=== PATIENT | female | born 1965 | race Caucasian/White ===

== ENCOUNTER 2016-08-30 05:55 | Emergency (ER) ==
[2016-08-30 06:17] LABS: MANUAL DIFF NEEDED? NO
[2016-08-30 06:17] LABS: URINE CULTURE NEEDED? NO; URINE SOURCE CLEAN CATCH
[2016-08-30 06:20] LABS: BILIRUBIN URINE NEGATIVE (NEGATIVE); BLOOD URINE NEGATIVE (NEGATIVE); COLOR YELLOW; GLUCOSE URINE NEGATIVE (NEGATIVE); LEUKOCYTES URINE NEGATIVE (NEGATIVE); NITRITE URINE NEGATIVE (NEGATIVE); PH URINE 5.5; PROTEIN URINE TRACE mg/dL (NEGATIVE); SP GRAVITY URINE 1.022; TURBIDITY URINE CLEAR (CLEAR); URINE MICRO REVIEW NEEDED? YES; UROBILINOGEN URINE NORMAL (NORMAL)
[2016-08-30 06:21] LABS: UR EPITHELIAL CELLS <10 /HPF (<10); URINE BACTERIA 1+ /HPF; URINE RBC <10 /HPF (<10); URINE WBC <10 /HPF (<10)
[2016-08-30 06:22] LABS: BASO% 0.5 % (0.0-0.8); EOS# 0.18 X1000 (0.0-0.7); EOS% 2.4 % (0.0-10.0); HEMATOCRIT 42.4 % (37.0-47.0); HEMOGLOBIN 14.3 g/dL (12.0-16.0); IMM GRAN# 0.03 X1000 (0.0-0.04); IMM GRAN% 0.4 % (0.0-0.5); LYMPH# 2.47 X1000 (1.2-3.4); LYMPH% 33.5 % (20.5-51.1); MCH 31.6 PG (27-31); MCHC 33.7 g/dL (33-37); MCV 93.8 FL (81-99); MONO# 0.56 X1000 (0.11-0.59); MONO% 7.6 % (1.7-9.3); MPV 9.9 FL (7.4-10.4); NEUT% 55.6 % (42.2-75.2); PLT 274 X1000 (130-400); RBC 4.52 XMIL (4.2-5.4)
[2016-08-30 06:26] LABS: URINE CASTS NONE SEEN; URINE CRYSTALS CA OXALATE PRESENT
[2016-08-30 06:27] LABS: URINE SMALL ROUND CELLS NONE SEEN
[2016-08-30 06:47] LABS: AGAP 15; ALBUMIN 4.3 g/dL (3.5-5.0); ALKALINE PHOSPHATASE 60 U/L (32-104); AMYLASE 87 U/L (20-200); BUN 7 mg/dL (8-22); CALCIUM 9.1 mg/dL (8.8-10.2); CHLORIDE 103 mmol/L (98-107); COSMO 282; GOT 24 U/L (10-30); GPT 26 U/L (10-36); LIPASE 35 U/L (13-60); POTASSIUM 4.1 mmol/L (3.5-5.1); SODIUM 142 mmol/L (136-145); TCO2 24 mmol/L (25-35); TOTAL BILIRUBIN 0.25 mg/dL (0.20-1.00); TOTAL PROTEIN 7.2 g/dL (6.3-8.3)
[2016-08-30] MEDS ORDERED: DULCOLAX PR ONE (08:29)
--- NOTE | 2016-08-30 08:30 | PROVIDER DOCUMENTATION ---
HPI-Abdominal Pain/GI Problem - General Chief Complaint: Abdominal Pain Stated Complaint: ABD PAIN Time Seen by Provider: 08/30/16 06:19 Source: patient Allergies/Adverse Reactions: Patient Allergies Allergy/AdvReac Type Severity Reaction Status Date / Time No Known Allergies Allergy Verified 04/12/15 17:15 Home Medications: Home Medication List Medication Instructions Recorded Confirmed Last Taken Type Clonazepam 1 mg PO DAILY 04/12/15 04/12/15 04/12/15 History Cyclobenzaprine [Flexeril] 10 mg PO PRN PRN 04/12/15 04/12/15 04/12/15 History Hydrocodone/Acetaminophen [Volcano 1 tab PO DAILY PRN 04/12/15 04/12/15 04/11/15 History 10-325 Tablet] Paroxetine [Paxil] 40 mg PO DAILY 04/12/15 04/12/15 04/12/15 History Bisacodyl [Dulcolax] 10 mg MA DAILY PRN #10 supp 08/30/16 Unknown Rx - History of Present Illness-ABD Nature of Presenting Problems: Reports she has been having off and on abd pain X years due to a small umbilical hernia. Pt eat some diet candy last night for wt loss. Severe epigastric pain at 1:30AM. Denies N/V/D. Pt had a small BM after ED arrival and her pain resolved. Abdominal Pain Onset Location: reports: epigastric Pain Radiation: reports: no radiation Quality of Pain: reports: aching, sharp Severity in ED: reports: moderate Onset/Duration: reports: other (See above) Timing: reports: gone now Activities at Onset: reports: none Modifying Factors: improves with: nothing Associated Symptoms: reports: constipation, cough, fever/chills. denies: chest pain Last BM: this morning Rectal Pain: reports: none Bruising or Bleeding Gums?: No Similar Symptoms Previously?: No Review of Systems - Adult - REVIEW OF SYSTEMS - ADULT Constitutional: reports: see HPI. denies: fever, fatique, night sweats Eyes: reports: no symptoms reported Ears, Nose, Mouth & Throat: reports: no symptoms reported Cardiovascular: reports: no symptoms reported Respiratory: reports: no symptoms reported Gastrointestinal: reports: see HPI, abdominal pain, nausea. denies: vomiting Genitourinary: reports: no symptoms reported Musculoskeletal: reports: no symptoms reported Integumentary: reports: no symptoms reported Neurological: reports: no symptoms reported Psychiatric: reports: no symptoms reported Endocrine: reports: no symptoms reported Hematologic/Lymphatic: reports: no symptoms reported All Other Systems: Reviewed and Negative Past History - Adult - PAST MEDICAL HISTORY-ADULT Review of Records: reports: Nursing Assessment Review, Medications Reviewed Major Childhood Illnesses: reports: denies history Cardiovascular: reports: denies history Respiratory: reports: denies history Gastrointestinal: reports: denies history Obstetrical/Gynecological: reports: denies history Genitourinary: reports: denies history Musculoskeletal: reports: chronic pain, neck/back injury Neurological: reports: denies history Psychiatric: reports: depression Endocrine/Immune: reports: denies history Other Conditions: reports: denies history - IMMUNIZATION STATUS Childhood Immunizations: See Nurse Assessment Flu Vaccine: See Nurse Assessment - FAMILY HISTORY Family History: reviewed, not pertinent Physical Exam-General - PHYSICAL EXAM-ADULT Initial Vital Signs Reviewed: Yes - CONSTITUTIONAL General Appearance: appears well, alert, no apparent distress - EYES Eyes: PERRL/EOMI, pink conjunctivae - HEAD, EARS, NOSE, MOUTH & THROAT HENMT: normocephalic/atraumatic, moist mucous membranes - NECK Neck: non-tender, full range of motion, supple - RESPIRATORY Respiratory: chest non-tender, lungs clear, normal breath sounds, no pleuratic chest pain, no respiratory distress, no accessory muscle use - CARDIOVASCULAR Cardiovascular: normal peripheral pulses, regular rate, rhythm - GASTROINTESTINAL (ABDOMEN) Abdominal Exam: normal bowel sounds, non tender, soft, no organomegaly, distended. negative: guarding, rigid, rebound, tenderness - LYMPHATIC Lymphatic: no adenopathy - MUSCULOSKELETAL Back Exam: normal inspection Extremity: normal range of motion - SKIN Integumentary: normal color, normal turgor, warm/dry - NEUROLOGIC Neurologic: grossly normal, no motor/sensory deficits, abnormal cerebellar tests - PSYCHIATRIC Psych/Mental Status: normal mood/affect, normal thought content, normal thought process, oriented x 3 Progress - PLAN OF CARE/RESULTS Progress/Plan/Lab Results: Laboratory Results - last 24 hr 08/30/16 08/30/16 08/30/16 06:00 06:05 06:05 WBC 7.37 RBC 4.52 Hgb 14.3 Hct 42.4 MCV 93.8 MCH 31.6 H MCHC 33.7 RDW Std Deviation 12.8 Plt Count 274 MPV 9.9 Immature Gran % (Auto) 0.4 Neut % (Auto) 55.6 Lymph % (Auto) 33.5 Dillon % (Auto) 7.6 Eos % (Auto) 2.4 Baso % (Auto) 0.5 Immature Gran # (Auto) 0.03 Neut # (Auto) 4.09 Lymph # (Auto) 2.47 Dillon # (Auto) 0.56 Eos # (Auto) 0.18 Baso # (Auto) 0.04 Sodium 142 Potassium 4.1 Chloride 103 Carbon Dioxide 24 L Anion Gap 15 BUN 7 L Creatinine 0.7 Estimated GFR/1.73 m2 > 60 BUN/Creatinine Ratio 10 Glucose 109 H Calculated Osmolality 282 Calcium 9.1 Total Bilirubin 0.25 AST 24 ALT 26 Alkaline Phosphatase 60 Total Protein 7.2 Albumin 4.3 Globulin 2.9 Albumin/Globulin Ratio 1.5 Amylase 87 Lipase 35 Urine Source CLEAN CATCH Urine Color YELLOW Urine Turbidity CLEAR Urine pH 5.5 Ur Specific Orcas 1.022 Urine Protein TRACE A Ur Glucose (Stick) NEGATIVE Ur Ketones (Stick) NEGATIVE Urine Blood NEGATIVE Urine Nitrite NEGATIVE Urine Bilirubin NEGATIVE Urobilinogen Dipstick NORMAL Urine Leukocytes NEGATIVE Urine WBC (Auto) <10 Urine RBC (Auto) <10 U Epithel Cells (Auto) <10 Urine Bacteria (Auto) 1+ Urine Crystals CA OXALATE PRESENT Small Round Cells NONE SEEN Urine Casts NONE SEEN Urine Yeast-like Cells NONE SEEN Bedside Urine ED: Urine Bedside Start: 08/30/16 06:00 Freq: ORDERED Status: Active Activity Type Activity Date Activity User Co-Sign Detail Recorded Client Recorded Date Recorded By Document 08/30/16 06:05 [id number] 08/30/16 06:08 [id number] 08/30/16 06:05 Point of Care [Bedside Point of Care] -Lot # [id number] - Results Negative -Control Line Visible? Yes Vital Signs Temp Pulse Resp BP Pulse Ox 08/30/16 05:56 98.1 F 96 H 18 181/117 98 No Known Allergies Allergy (Verified 08/30/16 08:31) Clonazepam 1 mg PO DAILY 04/12/15 Cyclobenzaprine [Flexeril] 10 mg PO PRN PRN 04/12/15 Hydrocodone/Acetaminophen [Volcano 10-325 Tablet] 1 tab PO DAILY PRN 04/12/15 Paroxetine [Paxil] 40 mg PO DAILY 04/12/15 Dietary Diet NPO Start MonAug 30 06 I&O 08/29/16 08/30/16 08/31/16 06:59 06:59 06:59 Output Total 5 Balance -5 Laboratory 08/30/16 08/30/16 08/30/16 06:05 06:05 06:00 WBC 7.37 RBC 4.52 Hgb 14.3 Hct 42.4 MCV 93.8 MCH 31.6 H MCHC 33.7 RDW Std Deviation 12.8 Plt Count 274 MPV 9.9 Immature Gran % (Auto) 0.4 Neut % (Auto) 55.6 Lymph % (Auto) 33.5 Dillon % (Auto) 7.6 Eos % (Auto) 2.4 Baso % (Auto) 0.5 Immature Gran # (Auto) 0.03 Neut # (Auto) 4.09 Lymph # (Auto) 2.47 Dillon # (Auto) 0.56 Eos # (Auto) 0.18 Baso # (Auto) 0.04 Sodium 142 Potassium 4.1 Chloride 103 Carbon Dioxide 24 L Anion Gap 15 BUN 7 L Creatinine 0.7 Estimated GFR/1.73 m2 > 60 BUN/Creatinine Ratio 10 Glucose 109 H Calculated Osmolality 282 Calcium 9.1 Total Bilirubin 0.25 AST 24 ALT 26 Alkaline Phosphatase 60 Total Protein 7.2 Albumin 4.3 Globulin 2.9 Albumin/Globulin Ratio 1.5 Amylase 87 Lipase 35 Urine Source CLEAN CATCH Urine Color YELLOW Urine Turbidity CLEAR Urine pH 5.5 Ur Specific [place]cas 1.022 Urine Protein TRACE A Ur Glucose (Stick) NEGATIVE Ur Ketones (Stick) NEGATIVE Urine Blood NEGATIVE Urine Nitrite NEGATIVE Urine Bilirubin NEGATIVE Urobilinogen Dipstick NORMAL Urine Leukocytes NEGATIVE Urine WBC (Auto) <10 Urine RBC (Auto) <10 U Epithel Cells (Auto) <10 Urine Bacteria (Auto) 1+ Urine Crystals CA OXALATE PRESENT Small Round Cells NONE SEEN Urine Casts NONE SEEN Urine Yeast-like Cells NONE SEEN Vital Signs Temp Pulse Resp BP Pulse Ox 08/30/16 05:56 98.1 F 96 H 18 181/117 98 No Known Allergies Allergy (Verified 08/30/16 08:31) Clonazepam 1 mg PO DAILY 04/12/15 Cyclobenzaprine [Flexeril] 10 mg PO PRN PRN 04/12/15 Hydrocodone/Acetaminophen [Volcano 10-325 Tablet] 1 tab PO DAILY PRN 04/12/15 Paroxetine [Paxil] 40 mg PO DAILY 04/12/15 Dietary Diet NPO Start MonAug 30 0600 I&O 08/29/16 08/30/16 08/31/16 06:59 06:59 06:59 Output Total 5 Balance -5 Laboratory 08/30/16 08/30/16 08/30/16 06:05 06:05 06:00 WBC 7.37 RBC 4.52 Hgb 14.3 Hct 42.4 MCV 93.8 MCH 31.6 H MCHC 33.7 RDW Std Deviation 12.8 Plt Count 274 MPV 9.9 Immature Gran % (Auto) 0.4 Neut % (Auto) 55.6 Lymph % (Auto) 33.5 Dillon % (Auto) 7.6 Eos % (Auto) 2.4 Baso % (Auto) 0.5 Immature Gran # (Auto) 0.03 Neut # (Auto) 4.09 Lymph # (Auto) 2.47 Dillon # (Auto) 0.56 Eos # (Auto) 0.18 Baso # (Auto) 0.04 Sodium 142 Potassium 4.1 Chloride 103 Carbon Dioxide 24 L Anion Gap 15 BUN 7 L Creatinine 0.7 Estimated GFR/1.73 m2 > 60 BUN/Creatinine Ratio 10 Glucose 109 H Calculated Osmolality 282 Calcium 9.1 Total Bilirubin 0.25 AST 24 ALT 26 Alkaline Phosphatase 60 Total Protein 7.2 Albumin 4.3 Globulin 2.9 Albumin/Globulin Ratio 1.5 Amylase 87 Lipase 35 Urine Source CLEAN CATCH Urine Color YELLOW Urine Turbidity CLEAR Urine pH 5.5 Ur Specific [place] 1.022 Urine Protein TRACE A Ur Glucose (Stick) NEGATIVE Ur Ketones (Stick) NEGATIVE Urine Blood NEGATIVE Urine Nitrite NEGATIVE Urine Bilirubin NEGATIVE Urobilinogen Dipstick NORMAL Urine Leukocytes NEGATIVE Urine WBC (Auto) <10 Urine RBC (Auto) <10 U Epithel Cells (Auto) <10 Urine Bacteria (Auto) 1+ Urine Crystals CA OXALATE PRESENT Small Round Cells NONE SEEN Urine Casts NONE SEEN Urine Yeast-like Cells NONE SEEN - CT/MRI 1 CT Study: Abdomen (Per Dr. Alejandre verbal, positive gall stones, no cholecystitis. Fatty liver, and R ovarian cyst X 3.6 CM. Severe constipation, sounds like the air got pushed to inside of colon wall, but no concerns air in the colon wall.) Departure - Departure Time of Disposition Order: 08:36 DIAGNOSIS: Abdominal pain Qualifiers: Abdominal location: unspecified location Qualified Code(s): R10.9 - Unspecified abdominal pain Constipation Qualifiers: Constipation type: unspecified constipation type Qualified Code(s): K59.00 - Constipation, unspecified Disposition: HOME 01 Certified Medical Emergency: Emergent Condition: Stable Additional Instructions: Follow up with regular MD in 2-3 days. Return to ER as needed. Prescriptions: Bisacodyl [Dulcolax] 10 mg MA DAILY PRN #10 supp PRN Reason: Constipation Referrals: Kurtis Julien MD [Primary Care Provider] -
--- NOTE | 2016-08-30 09:25 | Diag Imaging Result Document ---
PROCEDURE NAME: RENAL STONE SEARCH - 08/30/2016 CT ABDOMEN AND PELVIS WITHOUT ORAL OR INTRAVENOUS CONTRAST. DOSE REDUCTION PROTOCOL: FINDINGS: Normal spleen and adrenal glands. No inflammation about the pancreas. There are multiple noncalcified stones within the gallbladder. The gallbladder is not distended and there are no adjacent inflammatory changes. No focal hepatic abnormality except for a tiny cyst superiorly. The liver is prominent and there is fatty infiltration. No perinephric inflammation. No renal stones. No hydronephrosis. Normal aorta. Prominent stool throughout the colon. Questionable pneumatosis in the ascending colon although I believe this appearance is actually due to stool filling the colon. No abscess. The urinary bladder is moderately distended and appears normal. Normal uterus. The right ovary measures 3.7 cm in length. This measurement may in fact represent a large cyst. No free fluid within the pelvis. IMPRESSION: 1. Cholelithiasis. 2. Constipation. 3. Prominent liver with fatty infiltration. 4. Questionable left ovarian cyst. A preliminary report was called to Dr. Perez in the emergency room at 8:28 a.m.
[2016-08-30 10:33] VITALS: BP 140/82
== END 2016-08-30 09:00 | disposition home or self-care (01) ==
LOC: ED 05:55
DX: K59.00 Constipation, unspecified (principal); R10.13 Epigastric pain; K80.20 Calculus of gallbladder without cholecystitis without obstruction; R05 Cough; R50.9 Fever, unspecified; R11.0 Nausea; G89.29 Other chronic pain; F32.9 Major depressive disorder, single episode, unspecified; Z79.899 Other long term (current) drug therapy
CPT/HCPCS: 74176; 80053; 81001; 82150; 83690; 85025